=== PATIENT | female | born 1975 | race Caucasian/White ===

== ENCOUNTER 2017-03-13 17:01 | Emergency (ER) | payer BC ==
--- NOTE | 2017-03-13 17:37 | UC ---
Throat Pain/Nasal Neeraj HPI - HPI Summary HPI Summary: complaint of nasal congestion, sneezing and cough that started 3-4 days ago sore throat for the first couple of days bilateral ear pain headache in the front of her head fatigued pain in the front of her neck fever for the last 3 days -103.2 chalo taking ibuprofen with some relief of headache denies N/V/D , poor appetite denies muscle aches boyfriend with similiar illness - History of Current Complaint Chief Complaint: UCHeadache Stated Complaint: FEVER WRIGHT CONGESTED Hx Obtained From: Patient Hx Last Menstrual Period: 03/07/17 - Allergies/Home Medications Allergies/Adverse Reactions: Allergies Allergy/AdvReac Type Severity Reaction Status Date / Time Penicillins Allergy Mild Rash Verified 08/25/16 00:53 PMH/Surg Hx/FS Hx/Imm Hx Previously Healthy: Yes Endocrine History Of: Denies: Diabetes, Thyroid Disease Cardiovascular History Of: Denies: Cardiac Disorders, Hypertension Respiratory History Of: Denies: COPD, Asthma GI/ History Of: Denies: Ulcer - Surgical History Surgical History: Yes Surgery Procedure, Year, and Place: jaw surgery; r wrist, knee - Family History Known Family History: Negative: Cardiac Disease, Hypertension, Diabetes - Social History Occupation: Employed Full-time Lives: With Family Alcohol Use: Occasionally Substance Use Type: None Smoking Status (MU): Never Smoked Tobacco Review of Systems Constitutional: Fever, Chills Skin: Negative Eyes: Negative ENT: Sore Throat, Nasal Discharge Respiratory: Cough Cardiovascular: Negative Gastrointestinal: Negative Genitourinary: Negative Motor: Negative Neurovascular: Negative Musculoskeletal: Negative Neurological: Negative Psychological: Negative All Other Systems Reviewed And Are Negative: Yes Physical Exam Triage Information Reviewed: Yes Appearance: No Pain Distress, Well-Nourished, Ill-Appearing Vital Signs: Initial Vital Signs Temp 99 F 03/13/17 17:13 Pulse 87 03/13/17 17:13 Resp 20 03/13/17 17:13 Pulse Ox 98 03/13/17 17:13 Vital Signs Reviewed: Yes Eyes: Positive: Conjunctiva Clear ENT: Positive: Pharyngeal erythema, Nasal congestion, Nasal drainage, TM bulging , TM red Dental: Positive: Cervical Lymphadenopathy Neck: Positive: Supple. Negative: Nuchal Rigidity Respiratory: Positive: Lungs clear, Normal breath sounds, No respiratory distress Cardiovascular: Positive: RRR, No Murmur, Pulses Normal Abdomen Description: Positive: Nontender, Soft Bowel Sounds: Positive: Present Musculoskeletal: Positive: No Edema Neurological: Positive: Alert Psychological Exam: Normal Skin Exam: Normal Throat Pain/Nasal Course/Dx - Differential Dx/Diagnosis Differential Diagnosis/HQI/PQRI: Otitis Media, URI, Other - bronchitis Provider Diagnoses: bronchitis, otitis media bilaterally Discharge - Discharge Plan Condition: Stable Disposition: HOME Prescriptions: Azithromycin TAB* [Zithromax TAB (Z-DEBORAH) 250 mg #6 tabs] 2 tab PO .TODAY, THEN 1 DAILY #1 deborah Patient Education Materials: Acute Bronchitis (ED), Otitis Media (ED) Referrals: Leann Paul MD [Primary Care Provider] - Additional Instructions: Please start antibiotic as directed Increase fluids and rest Take acetaminophen or ibuprofen for fever or pain Please review your discharge instructions. If your symptoms do not improve please call your primary care provider or return to urgent care.
== END 2017-03-13 17:56 | disposition home or self-care (01) ==
LOC: UCEAST 17:01
DX: J40 Bronchitis, not specified as acute or chronic (principal); H66.93 Otitis media, unspecified, bilateral; Z88.0 Allergy status to penicillin
CPT/HCPCS: 99212; G0463

== ENCOUNTER 2018-01-01 18:35 | Emergency (ER) | payer BC ==
[2018-01-01 18:52] VITALS: BP 150/95
--- NOTE | 2018-01-01 18:57 | UC ---
Skin Complaint HPI - HPI Summary HPI Summary: Pt presents with lumps in right axilla that are painful. She tells me that when she was she had a "blocked milk duct" in her right axilla that eventually had to be incised and drained. Over the last month or so she has noticed swelling in this same area. About 1 week ago became more swollen and painful. Pain has progressed to the point where it is bothersome to rest her right arm at her side. She has never had a breast exam or mammogram. Denies fever, chills, recent illness, breast masses, night sweats, or hx of cancer. - History of Current Complaint Chief Complaint: UCSkin Time Seen by Provider: 01/01/18 18:57 Stated Complaint: PAINFUL LUMPS UNDER ARM Hx Obtained From: Patient Hx Last Menstrual Period: 2 wks ago Onset/Duration: Gradual Onset Onset Severity: Moderate Current Severity: Moderate Pain Intensity: 6 Pain Scale Used: 0-10 Numeric - Allergy/Home Medications Allergies/Adverse Reactions: Allergies Allergy/AdvReac Type Severity Reaction Status Date / Time Penicillins Allergy Rash Verified 01/01/18 18:52 Home Medications: Home Medications NK [No Home Medications Reported] 01/01/18 [History Confirmed 01/01/18] Review of Systems Constitutional: Negative Skin: Other - Painful lump right axilla ENT: Negative Respiratory: Negative Cardiovascular: Negative Gastrointestinal: Negative Neurovascular: Negative Musculoskeletal: Negative Neurological: Negative Psychological: Negative All Other Systems Reviewed And Are Negative: Yes PMH/Surg Hx/FS Hx/Imm Hx Previously Healthy: Yes - Surgical History Surgical History: Yes Surgery Procedure, Year, and Place: jaw surgery; right wrist, right knee - Family History Known Family History: Negative: Cardiac Disease, Hypertension, Diabetes - Social History Occupation: Employed Full-time Lives: With Family Alcohol Use: Occasionally Substance Use Type: None Smoking Status (MU): Never Smoked Tobacco Physical Exam Triage Information Reviewed: Yes Appearance: Well-Appearing, No Pain Distress, Well-Nourished Vital Signs: Initial Vital Signs Temp 98.5 F 01/01/18 18:49 Pulse 88 01/01/18 18:49 Resp 12 01/01/18 18:49 BP 150/95 01/01/18 18:49 Pulse Ox 100 01/01/18 18:49 Vital Signs Reviewed: Yes Neck: Positive: Supple, Nontender, No Lymphadenopathy Respiratory: Positive: Lungs clear, Normal breath sounds, No respiratory distress, No accessory muscle use Cardiovascular: Positive: RRR, No Murmur, Pulses Normal Neurological: Positive: Alert Psychological: Positive: Age Appropriate Behavior Skin: Positive: Other - In the right axilla there are two areas of edema and significant tenderness. The anterior area of edema is approx 2.0cm in length and 1.0cm in width with no appreciable nodule, erythema, or fluctuance. The posterior area of edema is 1.0cm in diameter and with an underlying nodule approx 5mm - no erythema, drainage, or streaking. - Additional Comments Refused breast exam. Course/Dx - Course Course Of Treatment: Right axillary LAD vs abscess. I advised her to f/u with her PCP and/or general surgery [facility] for further evaluation and potential ultrasound/biopsy of the area. - Diagnoses Provider Diagnoses: Right axillary lymphadenopathy Discharge - Discharge Plan Condition: Stable Disposition: HOME Referrals: Leann Paul MD [Primary Care Provider] - As Soon As Possible Bon Pulliam MD [Medical Doctor] - As Soon As Possible Additional Instructions: If you develop a fever, shortness of breath, chest pain, new or worsening symptoms - please call your PCP or go to the ED. Your blood pressure was high at todays visit. Please see your primary provider within 4 weeks for recheck and re-evaluation. 1) Please call your PCP and Dr. Pulliam at the numbers below to schedule a follow up appointment as soon as possible regarding your right under-arm swelling and pain.
== END 2018-01-01 19:15 | disposition home or self-care (01) ==
LOC: UCEAST 18:35
DX: R59.0 Localized enlarged lymph nodes (principal); Z88.0 Allergy status to penicillin
CPT/HCPCS: 99211; G0463

== ENCOUNTER 2018-07-18 10:57 | Emergency (ER) | payer BC ==
[2018-07-18 11:43] VITALS: BP 142/90
--- NOTE | 2018-07-18 12:40 | UC ---
Respiratory Complaint HPI - HPI Summary HPI Summary: 42 y/o female presents to the urgent care c/o pt states she has been ill with respiratory illness starting in the beginning of june. pt saw [facility] last and was given a zpak and it did nothing but pt still has a temp of 100. pt states she needs to get back to work. - History of Current Complaint Chief Complaint: UCRespiratory Stated Complaint: CHEST CONGESTION Time Seen by Provider: 07/18/18 12:38 Hx Last Menstrual Period: 07/16/18 Pain Intensity: 5 - Allergies/Home Medications Allergies/Adverse Reactions: Allergies Allergy/AdvReac Type Severity Reaction Status Date / Time Penicillins Allergy Rash Verified 07/18/18 11:43 Home Medications: Home Medications Dm/PE/Acetaminophen/Doxylamine [Vicks Dayquil-Nyquil Cold-Flu] 1 mis PO [History] GuaiFENesin DM* [Robitussin DM*] 10 ml PO Q6H PRN 07/18/18 [History Confirmed ] Ibuprofen 400 mg PO 07/18/18 [History] PMH/Surg Hx/FS Hx/Imm Hx - Surgical History Surgical History: Yes Surgery Procedure, Year, and Place: jaw surgery; right wrist, right knee - Family History Known Family History: Negative: Cardiac Disease, Hypertension, Diabetes - Social History Alcohol Use: Occasionally Substance Use Type: None Smoking Status (MU): Never Smoked Tobacco Physical Exam - Summary Physical Exam Summary: Vital Signs Reviewed: Yes General: well developed, well nourished female sitting in the examining table w/ o any apparent distress Eyes: Positive: Conjunctiva Clear - PERRLA, EOMI, fundi grossly normal ENT: Positive: Normal ENT inspection, Hearing grossly normal, Pharynx normal, Nasal congestion - edematous and erythematous nasal mucosa, Nasal drainage - yellowish drainage, TMs normal. Negative: Tonsillar swelling, Tonsillar exudate Neck: Positive: Supple, Nontender, No Lymphadenopathy Respiratory: no orthopnea or dyspnea. Able to speak in full sentences, no retractions or accessory muscle use, no tripod position, stridor, or head bobbing. Positive breath sounds bilaterally. diffuse scattered wheezing and rhonchi on b/L lungs, no crackles or rales. Cardiovascular: Positive: RRR, No Murmur, Pulses Normal, Brisk Capillary Refill Abdomen Description: Positive: Nontender, No Organomegaly, Soft. Negative: CVA Tenderness (R), CVA Tenderness (L) Bowel Sounds: Positive: Present Musculoskeletal Exam: Normal Musculoskeletal: Positive: Strength Intact, ROM Intact, No Edema Neurological Exam: Normal Psychological Exam: Normal Skin Exam: Normal Triage Information Reviewed: Yes Vital Signs: Initial Vital Signs Temp 97.4 F 07/18/18 11:39 Pulse 102 07/18/18 11:39 Resp 18 07/18/18 11:39 BP 142/90 07/18/18 11:39 Pulse Ox 99 07/18/18 11:39 UC Diagnostic Evaluation - Laboratory O2 Sat by Pulse Oximetry: 99 Respiratory Course/Dx - Differential Dx/Diagnosis Differential Diagnosis/HQI/PQRI: Asthma, Bronchitis, Lower Resp Infection, Sinusitis, Other - pneumonia Discharge - Sign-Out/Discharge Documenting (check all that apply): Patient Departure - D/C home All imaging exams completed and their final reports reviewed: Yes - Discharge Plan Condition: Stable Disposition: HOME Prescriptions: Benzonatate CAP* [Tessalon 100 MG CAP*] 100 mg PO TID #21 cap DOXYcycline CAP(*) [DOXYcycline 100MG CAP(*)] 100 mg PO BID #20 cap Patient Education Materials: Acute Bronchitis (ED) Forms: *Work Release Referrals: Leann Paul MD [Primary Care Provider] - 3 Days Additional Instructions: 1-Please take full course of antibiotic to avoid resistance. 2-Take Tessalon PO tabs as directed and use the albuterol inhaler to alleviate cough. Increase fluid intake, rest and eat well. 3- If symptoms do not improve or worsen or your develop SOB with fever and severe cough please go immediately to the ER further evaluation and treatment. 4- F/u with your PCP in 3 days if not improvement of symptoms for further management. - Billing Disposition and Condition Condition: STABLE Disposition: Home
[2018-07-18] MEDS ORDERED: Albuterol 2.5 MG/3 ML NEB.SOL* (0.083%) INH ONE (12:49)
--- NOTE | 2018-07-18 13:12 | RAD ---
INDICATION: Productive cough and fever COMPARISON: Most recent comparison chest x-rays dated November 20, 2011 TECHNIQUE: PA and lateral views of the chest were obtained. FINDINGS: The heart and mediastinum are normal in size and contour. The lungs are grossly clear. There is no evidence of large pleural effusion. Visualized bones are normal for the patient's age. There is no radiographic evidence of free air beneath the diaphragm IMPRESSION: No radiographic evidence of acute cardiopulmonary disease.
== END 2018-07-18 13:30 | disposition home or self-care (01) ==
LOC: UCEAST 10:57
DX: J20.9 Acute bronchitis, unspecified (principal); Z88.0 Allergy status to penicillin
CPT/HCPCS: 71046; 99212; G0463

== ENCOUNTER 2018-11-25 16:40 | Emergency (ER) | payer OTHER ==
[2018-11-25] MEDS ORDERED: Diazepam TAB(*) 5 MG PO ONE (17:13)
[2018-11-25] MEDS ORDERED: Metoclopramide IV* 5 MG/ML 2 ML VIAL IV SLOW PU ONE (17:13)
[2018-11-25] MEDS ORDERED: diPHENhydraMINE IV* 25 MG in NS 0.9% 50 ML* 50 ML IVPB ONE (17:13)
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
[2018-11-25] MEDS ORDERED: diPHENhydraMINE IV* 50 MG/ML 1 ml VIAL (BENADRYL) SLOW PUSH ONE (18:00)
[2018-11-25 18:10] LABS: Hematocrit 40 % (35-47); Hemoglobin 13.5 g/dl (12.0-16.0); Mean Corpuscular HGB Conc 34 g/dl (31-36); Mean Corpuscular Hemoglobin 32 pg (27-31); Mean Corpuscular Volume 94 fL (80-97); Mean Platelet Volume 9.9 fL (7.4-10.4); Platelet Count 178 10^3/ul (150-450); Red Blood Count 4.28 10^6/ul (4.00-5.40); Red Cell Distribution Width 13 % (10.5-15); White Blood Count 4.5 10^3/ul (3.5-10.8)
[2018-11-25 18:28] LABS: Albumin 4.4 g/dL (3.2-5.2); Albumin/Globulin Ratio 1.9 (1-3); BUN/Creatinine Ratio 16.9 (8-20); Calcium 9.5 mg/dL (8.6-10.3); EGFR African American 122.2 (>60); Globulin 2.3 g/dL (2-4); Potassium 3.8 mmol/L (3.5-5.0); Total Bilirubin 0.4 mg/dL (0.2-1.0); Total Protein 6.7 g/dL (6.4-8.9)
[2018-11-25] MEDS ORDERED: Ketorolac INJ* 30 MG/ML 1 ML VIAL IV PUSH ONE (18:59)
[2018-11-25] MEDS ORDERED: Dexamethasone IV* 4 MG/ML 1 ML (4 MG) IV SLOW PU ONE (19:16)
[2018-11-25] MEDS ORDERED: Magnesium Sulfate 2 GM IV* 2 GM/50 ML BAG IVPB ONE (19:16)
[2018-11-25 21:36] VITALS: BP 126/86
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
== END 2018-11-25 21:51 | disposition home or self-care (01) ==
LOC: ED 16:40
DX: R51 Headache (principal); Z88.0 Allergy status to penicillin
CPT/HCPCS: 36415; 70450; 72125; 80053; 85027; 96365; 96375; 96376; 99282; A9270-GY; J1100; J1200; J1885; J2765; J3475

== ENCOUNTER 2019-07-18 15:20 | Emergency (ER) | payer OTHER ==
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
[2019-07-18 16:40] LABS: Hematocrit 40 % (35-47); Hemoglobin 13.6 g/dL (12.0-16.0); Mean Corpuscular HGB Conc 34 g/dL (31-36); Mean Corpuscular Hemoglobin 32 pg (27-31); Mean Corpuscular Volume 95 fL (80-97); Mean Platelet Volume 10.4 fL (7.4-10.4); Platelet Count 216 10^3/uL (150-450); Red Blood Count 4.19 10^6 /uL (3.70-4.87); Red Cell Distribution Width 13 % (10-15); White Blood Count 5.8 10^3/uL (3.5-10.8)
[2019-07-18 17:03] LABS: Anion Gap 5 mmol/L (2-11); BUN/Creatinine Ratio 15.2 (8-20); Blood Urea Nitrogen 12 mg/dL (6-24); CO2 Carbon Dioxide 25 mmol/L (22-32); Calcium 9.2 mg/dL (8.6-10.3); Chloride 109 mmol/L (101-111); EGFR Non-African American 80.2 (>60); Glucose 96 mg/dL (70-100); Sodium 139 mmol/L (135-145)
[2019-07-18 17:05] LABS: HCG Pregnancy < 0.60 mIU/mL
[2019-07-18 17:18] LABS: ABS Eosinophils 0.2 10^3/ul (0-0.6); ABS Lymphocytes 1.3 10^3/ul (1.0-4.8); ABS Monocytes 0.4 10^3/ul (0-0.8); ABS Neutrophils 3.8 10^3/ul (1.5-7.7); Eosinophil % 3.2 %; Nucleated Red Blood Cells % 0.1
[2019-07-18 17:44] VITALS: BP 132/90
== END 2019-07-18 17:43 | disposition home or self-care (01) ==
LOC: ED 15:20
DX: S09.90XA Unspecified injury of head, initial encounter (principal); W10.9XXA Fall (on) (from) unspecified stairs and steps, initial encounter; Y92.9 Unspecified place or not applicable; M50.30 Other cervical disc degeneration, unspecified cervical region; Z79.899 Other long term (current) drug therapy; Z88.0 Allergy status to penicillin
CPT/HCPCS: 36415; 70450; 72125; 80048; 84484; 84702; 85025; 93005; 99282

== ENCOUNTER 2021-03-31 10:56 | Inpatient (IN) ==
[2021-03-31] MEDS ORDERED: methylPREDNISolone 125 mg 2 ML VIAL IV ONE (11:17)
[2021-03-31] MEDS ORDERED: Famotidine IV 10 MG/ML 2 ml VIAL (20 mg) IV SLOW PU ONE (13:04)
[2021-03-31] MEDS ORDERED: Albuterol 2.5mg/3 ml (0.083%) NEB.SOLN INH ONE (13:41)
[2021-03-31] MEDS ORDERED: Albuterol (2.5 MG) 0.5 % CONC 0.5 ML NEB.SOLN INH ONE ×2 (13:42→13:45)
[2021-03-31] MEDS ORDERED: diPHENhydraMINE IV 50 MG/ML 1 ml VIAL (BENADRYL) IV ONE ×2 (15:32→20:15)
[2021-03-31] MEDS ORDERED: Albuterol HFA INHALER 8 gm MDI INH PRN (15:34)
[2021-03-31 16:28] LABS: ABS Lymphocytes 0.5 10^3/ul (1.0-4.8); ABS Monocytes 0.1 10^3/ul (0-0.8); ABS Neutrophils 10.8 10^3/ul (1.5-7.7); Eosinophil % 0.1 %; Hematocrit 38 % (35-47); Hemoglobin 12.8 g/dL (12.0-16.0); Lymphocyte % 4.6 %; Mean Corpuscular HGB Conc 34 g/dL (31-36); Mean Corpuscular Hemoglobin 32 pg (27-31); Mean Corpuscular Volume 94 fL (80-97); Mean Platelet Volume 9.9 fL (7.4-10.4); Platelet Count 236 10^3/uL (150-450); Red Blood Count 3.99 10^6 /uL (3.70-4.87); Red Cell Distribution Width 13 % (10-15); White Blood Count 11.4 10^3/uL (3.5-10.8)
[2021-03-31 16:55] LABS: Albumin 4.2 g/dL (3.2-5.2); Blood Urea Nitrogen 15 mg/dL (6-24); CO2 Carbon Dioxide 19 mmol/L (22-32); Calcium 8.8 mg/dL (8.6-10.3); Chloride 106 mmol/L (101-111); EGFR African American 82.7 (>60); EGFR Non-African American 68.3 (>60); Globulin 2.6 g/dL (2-4); Glucose 129 mg/dL (70-100); Sodium 140 mmol/L (135-145); Total Protein 6.8 g/dL (6.4-8.9)
[2021-03-31 16:56] LABS: ALT 13 U/L (7-52); Albumin/Globulin Ratio 1.6 (1-3); Alkaline Phosphatase 44 U/L (35-149)
[2021-03-31 17:05] LABS: Anion Gap 15 mmol/L (2-11)
[2021-03-31 17:28] LABS: Phosphorus 2.4 mg/dL (2.5-5.0)
[2021-03-31 19:11] LABS: Magnesium 1.7 mg/dL (1.9-2.7); Potassium Redraw 3.6 mmol/L (3.5-5.0)
[2021-03-31] MEDS: methylPREDNISolone SOD 40 mg/ml 1 ml VIAL IV SCH (19:34)
[2021-03-31] MEDS ORDERED: Potassium Chlor 20 meq TAB.ER PO ONE (19:49)
[2021-03-31] MEDS ORDERED: KCL 20 MEQ/100 ML IVPREMIX 20 MEQ/100 ML BAG IV SCH (20:00)
[2021-03-31] MEDS ORDERED: Magnesium Sulfate IV 3 GM in NS 0.9% 100 ml BAG 100 ML IVPB ONE (20:00)
[2021-03-31] MEDS ORDERED: NS 0.9% 100 ml BAG 100 ML ONE (20:22)
[2021-04-01] MEDS: diPHENhydraMINE IV 50 MG/ML 1 ml VIAL (BENADRYL) IV PRN ×2 (04:24→21:48)
[2021-04-01] MEDS: methylPREDNISolone SOD 40 mg/ml 1 ml VIAL IV SCH ×3 (05:53→20:11)
[2021-04-01 06:26] LABS: ABS Lymphocytes 0.7 10^3/ul (1.0-4.8); ABS Monocytes 0.4 10^3/ul (0-0.8); ABS Neutrophils 11.1 10^3/ul (1.5-7.7); Eosinophil % 0.2 %; Hematocrit 36 % (35-47); Hemoglobin 12.3 g/dL (12.0-16.0); Lymphocyte % 5.6 %; Mean Corpuscular HGB Conc 34 g/dL (31-36); Mean Corpuscular Hemoglobin 32 pg (27-31); Mean Corpuscular Volume 94 fL (80-97); Platelet Count 245 10^3/uL (150-450); Red Blood Count 3.85 10^6 /uL (3.70-4.87); Red Cell Distribution Width 14 % (10-15); White Blood Count 12.2 10^3/uL (3.5-10.8)
[2021-04-01 06:35] LABS: INR 0.96 (0.82-1.09)
[2021-04-01 06:47] LABS: Calcium 9.1 mg/dL (8.6-10.3); EGFR African American 140.1 (>60); EGFR Non-African American 115.8 (>60); Magnesium 2.3 mg/dL (1.9-2.7); Potassium 4.2 mmol/L (3.5-5.0)
[2021-04-02] MEDS: Butalb/Acetamin/Caff TAB 325-50-40MG PO PRN ×2 (10:43→20:25)
[2021-04-02 18:29] LABS: Complement CH50 58 U/mL (30-75)
[2021-04-02] MEDS: diPHENhydraMINE IV 50 MG/ML 1 ml VIAL (BENADRYL) IV PRN (21:51)
[2021-04-03 07:49] VITALS: BP 133/87
== END 2021-04-03 10:10 | disposition home or self-care (01) | DRG 811 ==
LOC: ED 10:56 → ICU 16:34 → MED 04-02 15:59
PROVIDERS: ADMIT Internal Medicine; ATTEND Internal Medicine